=== PATIENT | male | born 1975 | race African-American/Black ===

== ENCOUNTER 2018-06-16 01:13 | Emergency (ER) | payer SELFPAY ==
[~2018-06-16] VITALS: Ht 177.8 cm; Wt 77.0 kg
[2018-06-16] MEDS ORDERED: SODIUM CHLORIDE 0.9% 1,000 ML IV ONE (01:45)
[2018-06-16] MEDS ORDERED: PROCHLORPERAZINE MALEATE 10MG TABLET PO ONE (01:45)
[2018-06-16] MEDS ORDERED: KETOROLAC 30MG/ML VIAL IV ONE (01:45)
[2018-06-16] MEDS ORDERED: DEXAMETHASONE 10 MG/ML VIAL IV ONE (01:45)
[2018-06-16] MEDS ORDERED: DIPHENHYDRAMINE 50MG/ML VIAL IV ONE (01:45)
[2018-06-16] MEDS ORDERED: ONDANSETRON HCL 4MG/2ML INJ IV ONE (01:45)
[2018-06-16] MEDS ORDERED: METOCLOPRAMIDE HCL 10MG/2ML VIAL IV ONE (02:15)
[2018-06-16] MEDS ORDERED: MANNITOL 12.5G (25%) VIAL 50ML IV ONE (03:15)
[2018-06-16] MEDS ORDERED: MANNITOL 20% 250 ML IV SCH (03:30)
[2018-06-16] MEDS ORDERED: MORPHINE SULFATE 4 MG/ML CPJ (NOT FOR IM USE) IV ONE (05:00)
[2018-06-16 05:01] VITALS: BP 131/83
[2018-06-16] MEDS ORDERED: MORPHINE SULFATE 2 MG/ML CPJ (NOT FOR IM USE) IV ONE (05:05)
== END 2018-06-16 14:00 | disposition short-term general hospital (02) ==
LOC: ER 13:48
DX: I60.8 Other nontraumatic subarachnoid hemorrhage (principal); F12.10 Cannabis abuse, uncomplicated; G43.909 Migraine, unspecified, not intractable, without status migrainosus; R11.10 Vomiting, unspecified
CPT/HCPCS: 70450; 96365; 96375; 99291; J1100; J1200; J1885; J2270; J2405; J2765; J7030; J2150; J3490; Q0164